=== PATIENT | male | born 1975 | race Caucasian/White ===

== ENCOUNTER 2017-08-18 10:24 | Emergency (ER) | payer MEDICAID ==
[2017-08-18 10:46] VITALS: BP 146/87
--- NOTE | 2017-08-18 11:18 | EDM.PDOC ---
ED HPI GENERAL MEDICAL PROBLEM - General Chief Complaint: ENT Problem Stated Complaint: TOOTH PAIN Time Seen by Provider: 08/18/17 10:50 Source of Information: Reports: Patient History Limitations: Reports: No Limitations - History of Present Illness INITIAL COMMENTS - FREE TEXT/NARRATIVE: Patient presents with complaints of right upper dental pain and edema to right face along bridge of right nose that has worsened for 3 days. Aron has tried use of ibuprofen for pain with minimal relief. He reports he had some draining and relief of pressure to upper jaw last night. TOOTH Pain Score (Numeric/FACES): 7 - Related Data Allergies Allergy/AdvReac Type Severity Reaction Status Date / Time No Known Allergies Allergy Verified 08/18/17 10:46 Home Meds: Home Meds NK [No Known Home Meds] 08/18/17 [History] Past Medical History Musculoskeletal History: Reports: Fracture Social & Family History - Tobacco Use Smoking Status *Q: Heavy Tobacco Smoker Years of Tobacco use: 25 Packs/Tins Daily: 0.7 - Caffeine Use Caffeine Use: Reports: Soda - Recreational Drug Use Recreational Drug Use: No ED ROS ENT - Review of Systems Review Of Systems: See Below Constitutional: Reports: Fever, Chills. Denies: Malaise, Weakness HEENT: Reports: Other (Pain to right upper jaw at #7, 8 teeth, edema to right side of face. ) Respiratory: Denies: Shortness of Breath, Wheezing, Cough, Sputum Cardiovascular: Denies: Chest Pain, Dyspnea on Exertion, Edema, Lightheadedness , Palpitations, Syncope Endocrine: Reports: No Symptoms GI/Abdominal: Reports: No Symptoms : Reports: No Symptoms Musculoskeletal: Reports: No Symptoms Skin: Reports: Other (Edema to right face at upper lip, cheek and along right side of nose. ) Neurological: Denies: Confusion, Dizziness, Headache, Numbness, Syncope, Tingling, Weakness Psychiatric: Reports: No Symptoms Hematologic/Lymphatic: Reports: No Symptoms Immunologic: Reports: No Symptoms ED EXAM, ENT - Physical Exam Exam: See Below Text/Narrative:: Aron is a 42 year old male with complaints of dental pain and abscess with draining. He reports pain continues and has new increase of edema today since onset three days ago. Exam Limited By: No Limitations General Appearance: Alert, WD/WN, Mild Distress Eye Exam: Bilateral Eye: EOMI, PERRL Ears: Normal External Exam, Normal Canal, Hearing Grossly Normal, Normal TMs Nose: Normal Inspection, Normal Mucousa, No Blood Mouth/Throat: Dental Abcess, Dental Pain, Dental Tenderness, Gum Swelling, Lip Swelling, Other (Right side, drainage at #7, dental decay posteriorly. ) Head: Atraumatic, Facial Swelling, Facial Tenderness, Other (Right side) Neck: Normal Inspection, Supple, Non-Tender, Full Range of Motion Respiratory/Chest: No Respiratory Distress, Lungs Clear, Normal Breath Sounds, No Accessory Muscle Use, Chest Non-Tender Cardiovascular: Normal Peripheral Pulses, Regular Rate, Rhythm, No Edema, No Murmur, No Rub Back: Normal Inspection, Full Range of Motion. No: CVA Tenderness (R), CVA Tenderness (L) Extremities: Normal Inspection, Normal Range of Motion, Non-Tender, No Pedal Edema, Normal Capillary Refill Neurological: Alert, Oriented, CN II-XII Intact, Normal Cognition, Normal Gait, No Motor/Sensory Deficits Psychiatric: Normal Affect, Normal Mood Skin: Warm, Dry, Intact, Normal Color, No Rash Lymphatic: No Adenopathy Course - Vital Signs Last Recorded V/S: Last Vital Signs Temp 35.8 C 08/18/17 10:48 Pulse 68 08/18/17 10:48 Resp 16 08/18/17 10:48 BP 146/87 H 08/18/17 10:48 Pulse Ox 96 08/18/17 10:48 Departure - Departure Time of Disposition: 11:18 Disposition: Home, Self-Care 01 Condition: Fair Clinical Impression: Dental abscess, Dental caries extending into dentin - Discharge Information Instructions: Dental Abscess Referrals: Bee Beasley PA [Primary Care Provider] - Forms: ED Department Discharge Additional Instructions: You have a dental abscess and dental cavity extending into the dentin. It is best to work on drinking plenty of water, take medications as directed. Take Penicillin 500mg tablet by mouth four times a day for 10 days. Take metronidazole 500mg tablet by mouth three times a day for 10 day (no alcohol use with this medication). Use of antibiotics will help with your pain. Take ibuprofen 800mg by mouth three times a day as needed (best to take with food to prevent stomach irritation). You can also take acetaminophen 650 mg by mouth three times a day as needed for pain. You are provided hydrocodone 5/325mg, take one to two tablets by mouth three times a day as needed for pain. Report the [facility] dental clinic on SaturdayAugust 21 at 0815 for care. Return for worsening issues, fever or concerns. - Assessment/Plan Assessment:: dental abscess dental caries extending into dentin #7, 8 Plan: It is best to work on drinking plenty of water, take medications as directed. Take Penicillin 500mg tablet by mouth four times a day for 10 days. Take metronidazole 500mg tablet by mouth three times a day for 10 day (no alcohol use with this medication). Use of antibiotics will help with pain. Take ibuprofen 800mg by mouth three times a day as needed (best to take with food to prevent stomach irritation). You can also take acetaminophen 650 mg by mouth three times a day as needed for pain. Patient provided hydrocodone 5/325mg, take one to two tablets by mouth three times a day as needed for pain via instymed. Report the [facility] dental clinic on SaturdayAugust 21 at 0815 for care. Return for worsening issues, fever or concerns. [place] residential insurance inspector checked.
== END 2017-08-18 11:36 | disposition home or self-care (01) ==
LOC: JP.ED 10:24
DX: K04.7 Periapical abscess without sinus (principal); K02.9 Dental caries, unspecified; F17.210 Nicotine dependence, cigarettes, uncomplicated
CPT/HCPCS: 99283

== ENCOUNTER 2017-08-18 19:58 | Emergency (ER) | payer MEDICAID ==
[2017-08-18 20:11] VITALS: BP 149/82
[2017-08-18] MEDS ORDERED: Sodium Chloride 0.9% 1,000 ML IV ONE (20:12)
[2017-08-18] MEDS: Sodium Chloride 0.9% 10 ML Syringe FLUSH PRN ×2 (20:20→21:14)
--- NOTE | 2017-08-18 20:43 | EDM.PDOC ---
ED HPI GENERAL MEDICAL PROBLEM - General Chief Complaint: Fever Stated Complaint: RETURN VISIT FROM EARLIER TODAY Time Seen by Provider: 08/18/17 20:15 Source of Information: Reports: Patient, Family History Limitations: Reports: No Limitations - History of Present Illness INITIAL COMMENTS - FREE TEXT/NARRATIVE: Patient presents to the emergency room tonight after significant worsening of dental abscess. He complains of fevers, chills, nausea, increase in edema to face with spread, difficulty eating and drinking. Improves with: Reports: None Worsens with: Reports: Eating, Movement Associated Symptoms: Reports: Fever/Chills, Nausea/Vomiting Right Upper Oral/Mouth Pain Score (Numeric/FACES): 7 - Related Data Allergies Allergy/AdvReac Type Severity Reaction Status Date / Time No Known Allergies Allergy Verified 08/18/17 10:46 Home Meds: Home Meds NK [No Known Home Meds] 08/18/17 [History] Past Medical History Musculoskeletal History: Reports: Fracture Social & Family History - Tobacco Use Smoking Status *Q: Heavy Tobacco Smoker Years of Tobacco use: 25 Packs/Tins Daily: 0.7 - Caffeine Use Caffeine Use: Reports: Soda - Recreational Drug Use Recreational Drug Use: No ED ROS ENT - Review of Systems Review Of Systems: See Below Constitutional: Reports: Fever, Chills, Malaise. Denies: Weakness HEENT: Reports: Dental Pain, Other (Increase edema to right face upper lip) Respiratory: Denies: Shortness of Breath, Cough, Sputum, Hemoptysis Cardiovascular: Denies: Chest Pain, Dyspnea on Exertion, Edema, Lightheadedness , Palpitations, Syncope Endocrine: Reports: No Symptoms GI/Abdominal: Reports: Difficulty Swallowing, Nausea. Denies: Constipation, Diarrhea, Vomiting : Reports: No Symptoms Musculoskeletal: Denies: Neck Pain, Joint Pain, Joint Swelling, Muscle Pain Skin: Reports: Erythema, Other (edema to right face upper lip, tenderness with palpation) Neurological: Reports: No Symptoms Psychiatric: Reports: No Symptoms Hematologic/Lymphatic: Reports: No Symptoms Immunologic: Reports: No Symptoms ED EXAM, ENT - Physical Exam Exam: See Below Text/Narrative:: Aron presents to the emergency room tonight with worsening of right dental abscess. Increase in edema to right face, upper lip, fevers and chills. Exam Limited By: No Limitations General Appearance: Alert, WD/WN, Moderate Distress Eye Exam: Bilateral Eye: EOMI, Normal Inspection, PERRL Ears: Normal External Exam, Normal Canal, Hearing Grossly Normal, Normal TMs Nose: Normal Inspection, Normal Mucousa, No Blood Mouth/Throat: Dental Abcess, Dental Pain, Gum Swelling, Other (Fluctuance to right upper oral cavity at maxillary incisors #7, 8 , inceased edema. ). No: Bleeding, Pharyngeal Erythema, Throat Swelling, Tongue Swelling, Tonsillar Erythema, Tonsillar Exudates, Tonsillar Swelling, Uvular Deviation, Uvular Edema Head: Atraumatic, Normocephalic Neck: Normal Inspection, Supple, Non-Tender, Full Range of Motion. No: Lymphadenopathy (R), Lymphadenopathy (L) Respiratory/Chest: No Respiratory Distress, Lungs Clear, Normal Breath Sounds, No Accessory Muscle Use, Chest Non-Tender Cardiovascular: Normal Peripheral Pulses, Regular Rate, Rhythm, No Edema, No Murmur, No Rub GI/Abdominal: Normal Bowel Sounds, Soft, Non-Tender, No Organomegaly, No Distention, No Mass Back: Normal Inspection, Full Range of Motion. No: CVA Tenderness (R), CVA Tenderness (L) Extremities: Normal Inspection, Normal Range of Motion, Non-Tender, No Pedal Edema, Normal Capillary Refill Neurological: Alert, Oriented, CN II-XII Intact, Normal Cognition, Normal Gait, No Motor/Sensory Deficits Psychiatric: Normal Affect, Normal Mood Skin: Dry, Intact, No Rash, Erythema, Other (erythema, edema right face, upper lip with increase since this am. ) Lymphatic: No Adenopathy Course - Vital Signs Last Recorded V/S: Last Vital Signs Temp 37.5 C 08/18/17 20:08 Pulse 81 08/18/17 20:08 Resp 16 08/18/17 20:08 BP 149/82 H 08/18/17 20:08 Pulse Ox 97 08/18/17 20:08 - Orders/Labs/Meds Orders: Active Orders 24 hr Category Date Time Status Max Facial Sinus w Cont [CT] Stat Exams 08/18/17 20:44 Taken CULTURE BLOOD [BC] Stat Lab 08/18/17 20:20 Received Iopamidol [Isovue-300 (61%)] Med 08/18/17 21:00 Active 100 ml IV . DIRECTED Sodium Chloride 0.9% [Normal Saline] 80 ml Med 08/18/17 21:00 Active IV ASDIRECTED Sodium Chloride 0.9% [Saline Flush] Med 08/18/17 20:10 Active 10 ml FLUSH ASDIRECTED PRN Saline Lock Insert [OM.PC] Routine Oth 08/18/17 20:10 Ordered Medication Orders Sodium Chloride (Normal Saline) 80 mls @ 3 mls/sec IV ASDIRECTED SINCERE Last Admin: 08/18/17 21:14 Dose: 3 mls/sec Iopamidol (Isovue-300 (61%)) 100 ml IV . DIRECTED SINCERE Last Admin: 08/18/17 21:14 Dose: 100 ml Sodium Chloride (Saline Flush) 10 ml FLUSH ASDIRECTED PRN PRN Reason: Keep Vein Open Last Admin: 08/18/17 21:14 Dose: 10 ml Admin: 08/18/17 20:20 Dose: 10 ml Labs: Laboratory Tests 08/18/17 08/18/17 08/18/17 Range/Units 20:20 20:20 20:20 WBC 8.3 (4.5-11.0) K/uL RBC 5.00 (4.30-5.90) M/uL Hgb 14.1 (12.0-15.0) g/dL Hct 40.0 (40.0-54.0) % MCV 80 (80-98) fL MCH 28 (27-31) pg MCHC 35 (32-36) % Plt Count 163 (150-400) K/uL Neut % (Auto) 88 H (36-66) % Lymph % (Auto) 5 L (24-44) % [place] % (Auto) 6 (2-6) % Eos % (Auto) 0 L (2-4) % Baso % (Auto) 0 (0-1) % ESR 17 (0-20) mm/hr Sodium 141 (140-148) mmol/L Potassium 3.4 L (3.6-5.2) mmol/L Chloride 103 (100-108) mmol/L Carbon Dioxide 26 (21-32) mmol/L Anion Gap 15.4 H (5.0-14.0) mmol/L BUN 12 (7-18) mg/dL Creatinine 1.0 (0.8-1.3) mg/dL Est Cr Clr Drug Dosing 103.11 mL/min Estimated GFR (MDRD) > 60 (>60) Glucose 129 H (74-106) mg/dL Calcium 8.4 L (8.5-10.1) mg/dL Total Bilirubin 0.7 (0.2-1.0) mg/dL AST 16 (15-37) U/L ALT 28 (12-78) U/L Alkaline Phosphatase 67 (46-116) U/L C-Reactive Protein 10.06 H (0.0-0.3) mg/dL Total Protein 7.6 (6.4-8.2) g/dL Albumin 3.9 (3.4-5.0) g/dL Globulin 3.7 H (2.3-3.5) g/dL Albumin/Globulin Ratio 1.1 L (1.2-2.2) Lab work reviewed. Meds: Medications Generic Name Dose Route Start Last Admin Trade Name Freq PRN Reason Stop Dose Admin Sodium Chloride 80 mls @ 3 mls/sec 08/18/17 21:00 08/18/17 21:14 Normal Saline IV 3 mls/sec ASDIRECTED SINCERE Administration Iopamidol 100 ml 08/18/17 21:00 08/18/17 21:14 Isovue-300 (61%) IV 100 ml . DIRECTED SINCERE Administration Sodium Chloride 10 ml 08/18/17 20:10 08/18/17 21:14 Saline Flush FLUSH 10 ml ASDIRECTED PRN Administration Keep Vein Open Discontinued Medications Generic Name Dose Route Start Last Admin Trade Name Leonardo PRN Reason Stop Dose Admin Sodium Chloride 1,000 mls @ 999 mls/hr 08/18/17 20:12 08/18/17 20:20 Normal Saline IV 08/18/17 21:12 999 mls/hr .BOLUS ONE Administration Clindamycin Phosphate 600 mg/ 54 mls @ 100 mls/hr 08/18/17 20:37 08/18/17 20: 49 Sodium Chloride IV 08/18/17 21:09 100 mls/hr ONETIME ONE Administration - Radiology Interpretation CT Results Date: 08/18/17 (No discreet abscess found. ) - Re-Assessments/Exams Free Text/Narrative Re-Assessment/Exam: 08/18/17 22:00 Patient reports he feels better. He has voided without difficulty. Lab work and CT results reviewed with patient and his family. All questions answered. He will be discharged with clindamycin PO. Departure - Departure Time of Disposition: 22:03 Disposition: Home, Self-Care 01 Condition: Good Clinical Impression: Dental abscess, Dental caries extending into dentin - Discharge Information Instructions: Dental Abscess, [id number] Referrals: Bee Beasley PA [Primary Care Provider] - Forms: ED Department Discharge Additional Instructions: You were given IV fluids and IV clindamycin 600mg in the emergency room. Facial CT did not show any distinct pockets of abscess. Drinking plenty of fluids, eat a soft diet, take medications as directed. Take clindamycin 300mg by mouth four times a day for 7 days. Continue metronidazole 500mg tablet by mouth three times a day for 10 day (no alcohol use with this medication). Use of antibiotics will help with pain. Take ibuprofen 800mg by mouth three times a day as needed (best to take with food to prevent stomach irritation). You can also take acetaminophen 650 mg by mouth three times a day as needed for pain. You were provided hydrocodone 5/325mg, take one to two tablets by mouth three times a day as needed for pain via instymed, continue for pain. Report the [facility] dental clinic on SaturdayAugust 21 at 0815 for care. Return for worsening issues, fever or concerns. Stop use of penicillin - My Orders Last 24 Hours: My Active Orders 08/18/17 20:10 Sodium Chloride 0.9% [Saline Flush] 10 ml FLUSH ASDIRECTED PRN Saline Lock Insert [OM.PC] Routine 08/18/17 20:20 CULTURE BLOOD [BC] Stat 08/18/17 20:44 Max Facial Sinus w Cont [CT] Stat 08/18/17 21:00 Iopamidol [Isovue-300 (61%)] 100 ml IV . DIRECTED Sodium Chloride 0.9% [Normal Saline] 80 ml IV ASDIRECTED - Assessment/Plan Last 24 Hours: My Active Orders 08/18/17 20:10 Sodium Chloride 0.9% [Saline Flush] 10 ml FLUSH ASDIRECTED PRN Saline Lock Insert [OM.PC] Routine 08/18/17 20:20 CULTURE BLOOD [BC] Stat 08/18/17 20:44 Max Facial Sinus w Cont [CT] Stat 08/18/17 21:00 Iopamidol [Isovue-300 (61%)] 100 ml IV . DIRECTED Sodium Chloride 0.9% [Normal Saline] 80 ml IV ASDIRECTED Assessment:: Dental abscess Dental caries, infection into dentin Plan: Patient given IV fluids and IV clindamycin 600mg in the emergency room. Facial CT did not show any distinct pockets of abscess. Drinking plenty of fluids, eat a soft diet, take medications as directed. Take clindamycin 300mg by mouth four times a day for 7 days. Continue metronidazole 500mg tablet by mouth three times a day for 10 day (no alcohol use with this medication). Use of antibiotics will help with pain. Take ibuprofen 800mg by mouth three times a day as needed (best to take with food to prevent stomach irritation). You can also take acetaminophen 650 mg by mouth three times a day as needed for pain. He was provided hydrocodone 5/325mg, take one to two tablets by mouth three times a day as needed for pain via instymed, continue for pain. Report the [facility] dental clinic on SaturdayAugust 21 at 0815 for care. Return for worsening issues, fever or concerns. Stop use of penicillin.
[2017-08-18] MEDS ORDERED: Iopamidol 612 MG/ML 100 ML Bottle IV SCH (21:00)
[2017-08-18] MEDS ORDERED: Sodium Chloride 0.9% 80 ML IV SCH (21:00)
== END 2017-08-18 22:16 | disposition home or self-care (01) ==
LOC: JP.ED 19:58
DX: K04.7 Periapical abscess without sinus (principal); K02.9 Dental caries, unspecified; F17.210 Nicotine dependence, cigarettes, uncomplicated
CPT/HCPCS: 36415; 70487; 80053; 85025; 85651; 86140; 87040; 96365; 99284; J7030; J7040; J7050; Q9967; S0077

== ENCOUNTER 2018-03-31 19:57 | Emergency (ER) | payer MEDICAID ==
[2018-03-31 21:06] VITALS: BP 149/98
--- NOTE | 2018-03-31 21:32 | EDM.PDOC ---
ED HPI GENERAL MEDICAL PROBLEM - General Chief Complaint: ENT Problem Stated Complaint: toothache Time Seen by Provider: 03/31/18 20:23 Source of Information: Reports: Patient History Limitations: Reports: No Limitations - History of Present Illness INITIAL COMMENTS - FREE TEXT/NARRATIVE: Dental pain: This is a 43-year-old male presents emergency room with dental pain. Reports had a root canal done this past summer 2016, now tooth is having the same symptoms. Increasing gum tenderness and swelling around the front tooth and pain with any air heat or eating. Onset: Gradual Duration: Day(s): (2) Location: Reports: Other (Dental) Quality: Reports: Same as Previous Episode Severity: Moderate Improves with: Reports: Medication Worsens with: Reports: Cold Therapy, Eating Associated Symptoms: Reports: No Other Symptoms Treatments GROCERY CLERK CHECKING: Reports: Acetaminophen, NSAIDS tooth pain Pain Score (Numeric/FACES): 7 - Related Data Allergies Allergy/AdvReac Type Severity Reaction Status Date / Time No Known Allergies Allergy Verified 03/31/18 21:11 Home Meds: Home Meds SUMAtriptan 100 mg PO ASDIRECTED 03/31/18 [History] Past Medical History Musculoskeletal History: Reports: Fracture Neurological History: Reports: Migraines - Infectious Disease History Infectious Disease History: Reports: Chicken Pox - Past Surgical History Male Surgical History: Reports: Vasectomy Social & Family History - Tobacco Use Smoking Status *Q: Current Every Day Smoker Years of Tobacco use: 20 Packs/Tins Daily: 0.5 - Caffeine Use Caffeine Use: Reports: Soda - Recreational Drug Use Recreational Drug Use: No - Living Situation & Occupation Living situation: Reports: 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) ED ROS ENT - Review of Systems Review Of Systems: See Below Constitutional: Reports: No Symptoms, Other ( dental pain) HEENT: Reports: Dental Pain Respiratory: Reports: No Symptoms (Moving) Cardiovascular: Reports: No Symptoms Endocrine: Reports: No Symptoms Skin: Reports: No Symptoms Neurological: Reports: No Symptoms Psychiatric: Reports: No Symptoms Hematologic/Lymphatic: Reports: No Symptoms Immunologic: Reports: No Symptoms ED EXAM, ENT - Physical Exam Exam: See Below Exam Limited By: No Limitations General Appearance: Alert, WD/WN, Mild Distress Ears: Normal External Exam, Normal Canal, Hearing Grossly Normal, Normal TMs Nose: Normal Inspection, No Blood Mouth/Throat: Dental Abcess (Gums are boggy and tender to exam front upper incisors.), Dental Pain (Right front incisor with pain, remaining teeth in good repair) Head: Atraumatic, Normocephalic Neck: Normal Inspection, Supple, Non-Tender, Full Range of Motion Respiratory/Chest: No Respiratory Distress Neurological: Alert, Oriented Psychiatric: Normal Affect, Normal Mood Skin: Warm, Dry, Intact, Normal Color Lymphatic: No Adenopathy Course - Vital Signs Last Recorded V/S: Last Vital Signs Temp 37.1 C 03/31/18 21:17 Pulse 66 03/31/18 21:17 Resp 18 03/31/18 21:17 BP 149/98 H 03/31/18 21: Pulse Ox 96 03/31/18 21:17 Departure - Departure Time of Disposition: 21:56 Disposition: Home, Self-Care 01 Condition: Good Clinical Impression: Dental abscess - Discharge Information Instructions: Dental Abscess Referrals: Bee Beasley PA [Primary Care Provider] - Forms: ED Department Discharge Care Plan Goals: Dental pain with abscess -Clindamycin 150 mg take 2 capsules 3 times a day 5 days -Hydrocodone 5/325 take 1-2 every 4-6 hours when necessary pain #10 -May use ice or heat to face for comfort -Advised soft diet return to emergency room for any increased pain, facial swelling, fever, chills , nausea, vomiting, diarrhea, rash or worsening symptoms. Will give referral to community dental clinic for evaluation within the next 3 days - Problem List & Annotations (1) Dental abscess SNOMED Code(s): 009865889 Code(s): K04.7 - PERIAPICAL ABSCESS WITHOUT SINUS Status: Acute Priority : High - Problem List Review Problem List Initiated/Reviewed/Updated: Yes - Assessment/Plan Plan: Dental pain with abscess -Clindamycin 150 mg take 2 capsules 3 times a day 5 days -Hydrocodone 5/325 take 1-2 every 4-6 hours when necessary pain #10 -May use ice or heat to face for comfort -Advised soft diet return to emergency room for any increased pain, facial swelling, fever, chills , nausea, vomiting, diarrhea, rash or worsening symptoms. Will give referral to community dental clinic for evaluation within the next 3 days
== END 2018-03-31 21:56 | disposition home or self-care (01) ==
LOC: JP.ED 19:57
DX: K04.7 Periapical abscess without sinus (principal); F17.210 Nicotine dependence, cigarettes, uncomplicated
CPT/HCPCS: 99283

== ENCOUNTER 2022-08-27 19:38 | Emergency (ER) | payer MEDICAID ==
[2022-08-27 19:49] VITALS: PULSE 62
[2022-08-27] MEDS ORDERED: Aspirin 81 MG Tab.Chew PO ONE (19:58)
[2022-08-27 20:37] LABS: ESTIMATED GFR 76 mL/min (>60)
[2022-08-27] MEDS ORDERED: Bacitracin Oint 1 GM U/D Packet TOP ONE (20:51)
[2022-08-27] MEDS ORDERED: Ketorolac 30 MG/ML SDV IM ONE (21:05)
[2022-08-27 21:12] VITALS: BP 138/94
== END 2022-08-27 21:12 | disposition home or self-care (01) ==
LOC: JP.ED 19:38
DX: R07.89 Other chest pain (principal); F17.210 Nicotine dependence, cigarettes, uncomplicated
CPT/HCPCS: 36415; 71045; 71045-26; 80053; 84484; 85025; 93005; 93010; 96372; 99284; 99285